=== PATIENT | female | born 1955 | race Caucasian/White ===

== ENCOUNTER 2016-04-21 06:55 | Outpatient (CLI) | payer MEDICARE, MEDICAID ==
[~2016-04-21] VITALS: Ht 157.5 cm; Wt 46.7 kg
[~2016-04-21 06:55] MED LIST: AMLO5TAB2 PO; BPR150TCR PO; FLUT9.9S NS; HYDR200T46 PO; LUBI24CA6 PO; OXYC-309 PO; OXYC10TA63 PO; OXYC40TA46 PO; PANT40TA PO; PREG100C22 PO; SUCR1TAB36 PO; TIZA4CAP PO
[2016-04-21] MEDS ORDERED: OXYC-465 PO (14:22)
[2016-04-21] MEDS ORDERED: POLY17PO6 PO (14:22)
[2016-04-21] MEDS ORDERED: NALO12.5 PO (14:26)
== END 2016-04-21 14:28 ==
LOC: PREOP 06:55
PROVIDERS: ATTEND Surgery
DX: Z01.818 Encounter for other preprocedural examination (principal); R13.10 Dysphagia, unspecified

== ENCOUNTER 2016-04-25 09:53 | Day surgery (SDC) | payer MEDICARE, MEDICAID ==
[~2016-04-25] VITALS: Ht 157.5 cm; Wt 46.7 kg
[~2016-04-25 09:53] MED LIST changes: +NALO12.5 PO; +OXYC-465 PO; +POLY17PO6 PO
[2016-04-25] MEDS ORDERED: HURRICAINE EXT TUBE (BENZOCAINE) XX PRN (10:15)
[2016-04-25] MEDS ORDERED: NALOXONE 0.4 MG/ML 1 ML (NARCAN) VIAL IVP PRN (10:15)
[2016-04-25] MEDS ORDERED: NS IV 500 ML 500 ML IV PRN (10:15)
[2016-04-25] MEDS ORDERED: FLUMAZENIL (ROMAZICON) 0.1 MG/ML 5 ML VIAL INJ PRN (10:15)
--- NOTE | 2016-04-25 10:23 | Pre-Op Note & Conscious Sedat ---
Pre-Operative Progress Note H&P Reviewed The H&P was reviewed, patient examined and no changes noted. Date H&P Reviewed: Apr 25, 2016 Time H&P Reviewed: 10:23 Pre-Op Diagnosis: dysphagia Conscious Sedation Pre-Proced ASA Class: 2 Airway Mallampati Classification: ([place] appropriate class) I. II. III, IV Lungs Heart ASA score ASA 1: a normal healthy patient ASA 2: a patient with a mild systemic disease (mid diabetes, controlled hypertension, obesity ASA 3: a patient with a severe systemic disease that limits activity (angina , COPD, prior Myocardial infarction) ASA 4: a patient with an incapacitating disease that is a constant threat to life (CHF, renal failure) ASA 5: a moribund patient not expected to survive 24 hrs. (ruptured aneurysm) ASA 6: a declared brain patient whose organs are being harvested. For emergent operations, add the letter E after the classification Grade 2 Sedation Plan: Discussed options with patient/fam Note The patient is an appropriate candidate to undergo the planned procedure, sedation, and anesthesia. The patient immediately re-assessed prior to indication. ERYN UL MD Apr 25, 2016 10:23 am
[2016-04-25 10:25] VITALS: BP 121/65
[2016-04-25] MEDS ORDERED: ERYT-95 PO (10:47)
[2016-04-25] MEDS ORDERED: MIDAZOLAM 2 MG/2 ML (VERSED) VIAL ONE ×5 (10:52→11:04)
[2016-04-25] MEDS ORDERED: fentaNYL INJECTION 100 MCG/2 ML AMP ONE (10:52)
[2016-04-25] MEDS ORDERED: HURRICAINE EXT TUBE (BENZOCAINE) ONE (10:53)
[2016-04-25] MEDS: fentaNYL INJECTION 100 MCG/2 ML AMP IVP PRN ×2 (10:58→11:01)
[2016-04-25] MEDS: MIDAZOLAM 2 MG/2 ML (VERSED) VIAL IVP PRN ×5 (11:00→11:10)
--- NOTE | 2016-04-25 11:18 | Progress Note-Post Operative ---
Post-Operative Progess Note Pre-Operative Diagnosis dysphagia Post-Operative Diagnosis diffusely thickened esophagus with narrowing of the distal end. Stomach and duodenum normal Post-Op Procedure Note Date of Procedure: Apr 25, 2016 Name of Procedure: EGD with balloon dilatation Anesthesia Type sedation ERYN LU MD Apr 25, 2016 11:18 am
--- NOTE | 2016-04-25 11:20 | Discharge Inst-Simple/Standard ---
Discharge Inst-Standard Discharge Medications New, Converted or Re-Newed RX: Other Patient Instructions/Follow Up Plan of Care/Instructions/FU: follow-up with her primary Activity as Tolerated: Yes Discharge Diet: No Restrictions ERYN LU MD Apr 25, 2016 11:19 am
[2016-04-25 11:50] VITALS: BP 147/75
--- NOTE | 2016-04-25 12:12 | PROCEDURE REPORT ---
PROCEDURE PHYSICIAN: ERYN LU DATE OF PROCEDURE: 04/25/2016 PROCEDURE: 1. Upper GI endoscopy. 2. Balloon dilatation of distal esophageal stricture. SURGEON: Earl INDICATION FOR THE PROCEDURE: This lady with scleroderma presented with progressive dysphagia. Therefore, an endoscopic assessment and possible balloon dilatation despite transient response, was offered. Informed consent was obtained after reviewing the procedure in detail. DESCRIPTION OF PROCEDURE: She was placed in left lateral decubitus position and her vital signs where monitored. Conscious sedation was achieved using Versed and fentanyl. The flexible gastroscope was introduced down the esophagus, past the stomach, into the proximal duodenum. FINDINGS: ESOPHAGUS: 1. Diffusely thickened esophagus due to involvement of the esophageal musculature as part of scleroderma. 2. Narrowing of the distal end of the esophagus, which was dilated to 20 mm with a balloon. STOMACH AND DUODENUM: Were normal. She tolerated the procedure well and was taken back to the nursing area in a stable condition. IMPRESSION: 1. Scleroderma with dysphagia. 2. Balloon dilatation completed. NOTE: The results may be transient and she may require further evaluation by a nutter up Job ID: [id number] Dictated Date: 04/25/2016 11:18:03 Data Entry Manager Date: 04/25/2016 12:05:39 / ketty STANTON
[2016-04-25 12:20] VITALS: BP 129/71
[2016-04-25 12:30] VITALS: BP 129/71
== END 2016-04-25 12:30 | disposition home or self-care (01) ==
LOC: SDC 09:53
PROVIDERS: ATTEND Surgery
DX: K22.2 Esophageal obstruction (principal); M34.9 Systemic sclerosis, unspecified; R13.10 Dysphagia, unspecified

== ENCOUNTER 2016-06-25 17:19 | Emergency (ER) | payer MEDICARE, MEDICAID ==
[~2016-06-25] VITALS: Ht 157.5 cm; Wt 45.4 kg
[~2016-06-25 17:19] MED LIST changes: +ERYT-95 PO
--- OUTSIDE RECORDS SUMMARY | 2016-06-25 17:24 | XMS REPORT | Continuity of Care Document ---
Author Author [facility] [address] Organization [facility] [address] Address Unknown Phone Unavailable Allergies Active Description Code Type Severity Reaction Onset Reported/Identified Relationship to Patient Clinical Status Yes No Known Drug Allergies [id number] Drug Allergy Unknown N/ A 04/25/2016 Medications Problems Date Dx Coded Attending Type Code Diagnosis Diagnosed By 08/07/2012 Ot 706.2 08/07/2012 Ot V58.69 04/04/2015 YUNIOR MCGILL DO Ot F17.210 04/04/2015 YUNIOR MCGILL DO Ot M34.9 04/04/2015 YUNIOR MCGILL DO Ot T81.30XA 04/04/2015 Ot 305.1 04/04/2015 Ot 401.9 04/04/2015 Ot 710.1 04/04/2015 Ot 790.6 04/04/2015 Ot 709.9 04/04/2015 Ot V72.63 04/04/2015 Ot V74.8 04/04/2015 OLEG POLANCO MEETING MANAGER Ot 786.2 04/04/2015 OLEG POLANCO MEETING MANAGER Ot 793.19 04/22/2016 TABITHA ELLISON, ERYN Reis Ot R13.10 DYSPHAGIA, UNSPECIFIED 04/22/2016 TABITHA ELLISON, ERYN Reis Ot Z01.818 ENCOUNTER FOR OTHER PREPROCEDURAL EXAMIN 04/25/2016 TABITHA ELLISON, ERYN Reis Ot K22.2 ESOPHAGEAL OBSTRUCTION 04/25/2016 TABITHA ELLISON, ERYN Reis Ot M34.9 SYSTEMIC SCLEROSIS, UNSPECIFIED 04/25/2016 TABITHA ELLISON, ERYN Reis Ot R13.10 DYSPHAGIA, UNSPECIFIED 04/26/2016 TABITHA ELLISON, ERYN Reis Ot K22.2 ESOPHAGEAL OBSTRUCTION 04/26/2016 TABITHA ELLISON, ERYN Reis Ot M34.9 SYSTEMIC SCLEROSIS, UNSPECIFIED 04/26/2016 TABITHA ELLISON, EYRN Reis Ot R13.10 DYSPHAGIA, UNSPECIFIED 04/29/2016 TABITHA ELLISON, ERYN Reis Ot K22.2 ESOPHAGEAL OBSTRUCTION 04/29/2016 TABITHA ELLISON, ERYN Reis Ot M34.9 SYSTEMIC SCLEROSIS, UNSPECIFIED 04/29/2016 TABITHA ELLISON, ERYN Reis Ot R13.10 DYSPHAGIA, UNSPECIFIED Procedures Results Encounters ACCT No. Visit Date/Time Discharge Status Pt. Type Provider Facility Loc./Unit Complaint [id number] 04/25/2016 09:53:00 2016 12:30:00 DIS Outpatient ERYN LU MD [facility] [address] SDC DYSPHAGIA [id number] 04/21/2016 06:55:00 2016 14:28:00 DIS Outpatient ERYN LU MD [facility] [address] PREOP DYSPHAGIA [id number] 04/04/2015 22:32:00 2014 23:36:00 DIS Emergency YUNIOR MCGILL DO [facility] [address] ER [id number] 04/30/2013 09:42:00 2013 23:59:59 CLS Outpatient OLEG POLANCO [facility] [address] RAD [id number] 08/07/2012 10:25:00 Document Registration [id number] 08/03/2012 14:54:00 Document Registration [id number] 03/29/2012 15:01:00 Document Registration
[2016-06-25] MEDS ORDERED: LACT1CAP74 PO (19:14)
[2016-06-25] MEDS ORDERED: AMOX-358 PO (19:14)
[2016-06-25] MEDS ORDERED: RX-AMOX/CLAV. (AUGMENTIN) 500MG TAB PPK#2 PO STA (19:14)
--- NOTE | 2016-06-25 19:14 | ED General ---
General Chief Complaint: Bite-Animal/Human/Insect Stated Complaint: L ARM SWELLING/REDNESS, PAIN Nursing Triage Note: Patient reports cat bite her on her L hand on the . patient reports her LFA is red and swollen Nursing Sepsis Screen: No Definite Risk Source of Information: Patient Exam Limitations: No Limitations History of Present Illness Time Seen by Provider: 19:12 Initial Comments To ER with reports of redness to the radial side of the wrist that is spreading up the left forearm. No fevers or chills. This began 2 days ago after her pet cat bit her while in a fight with another cat. Tetanus is not up-to-date. Timing/Duration: 1-2 Days Severity: Moderate Associated Systoms: No Fever/Chills Allergies and Home Medications Allergies Coded Allergies: No Known Drug Allergies (Verified , 04/25/16) Home Medications Amlodipine Besylate 5 Mg Tablet 2.5 MG PO DAILY (Reported) Bupropion Hcl 150 Mg Tablet 150 MG PO BID (Reported) Erythromycin Base 250 Mg Tablet 250 MG PO Q6H (Reported) Fluticasone Propionate 9.9 Ml [place].susp 9.9 ML NS DAILY (Reported) Hydroxychloroquine Sulfate 200 Mg Tablet 200 MG PO BID (Reported) Lubiprostone 24 Mcg Capsule 24 MCG PO BID (Reported) Naloxegol Oxalate 12.5 Mg Tablet 12.5 MG PO DAILY (Reported) Oxycodone HCl 40 Mg Tab.er.12h 40 MG PO TID (Reported) Oxycodone HCl/Acetaminophen 1 Each Tablet 1 EACH PO Q4H PRN PRN PAIN (Reported) Oxycodone Hcl/Acetaminophen 1 Each Tablet 5-325 MG PO Q4H PRN PRN PAIN (Reported ) PRN BREAKTHROUGH PAIN Pantoprazole Sodium 40 Mg Tablet.dr 40 MG PO BID (Reported) Polyethylene Glycol 3350 17 Gm Powd.pack 17 GM PO DAILY (Reported) Sucralfate 1 Gm Tablet 1 GM PO QID PRN PRN GI UPSET (Reported) Tizanidine HCl 4 Mg Capsule 4 MG PO TID (Reported) Constitutional: see HPI EENTM: see HPI Respiratory: no symptoms reported Cardiovascular: no symptoms reported Genitourinary: no symptoms reported Musculoskeletal: see HPI Skin: no symptoms reported Psychiatric/Neurological: No Symptoms Reported Hematologic/Lymphatic: No Symptoms Reported Past Feryeeq-Iuyguf-Epurhy Hx Patient Social History Alcohol Use: Denies Use Recreational Drug Use: No Smoking Status: Current Everyday Smoker Type Used: Cigarettes Recent Foreign Travel: No Contact w/Someone Who Travel: No Recent Infectious Disease Expo: No Recent Hopitalizations: No Immunizations Up To Date Tetanus Booster (TDap): Unknown Date of Influenza Vaccine: Dec 17, 2015 Seasonal Allergies Seasonal Allergies: Yes Surgeries HX Surgeries: Yes (bursal cyst removal left elbow) Surgeries: Section Respiratory Hx Respiratory Disorders: No Cardiovascular Hx Cardiac Disorders: No Neurological Hx Neurological Disorders: No Reproductive System Hx Reproductive Disorders: No Sexually Transmitted Disease: No HIV/AIDS: No Genitourinary Hx Genitourinary Disorders: No Gastrointestinal Hx Gastrointestinal Disorders: Yes (hardened esophagus d/t scleroderma) Gastrointestinal Disorders: Gastroesophageal Reflux, Chronic Constipation, Diverticulosis, Polyps Musculoskeletal Hx Musculoskeletal Disorders: Yes Musculoskeletal Disorders: Arthritis, Chronic Back Pain Endocrine Hx Endocrine Disorders: No HEENT HX ENT Disorders: Yes (GLASSES) Loss of Vision: Bilateral Hearing Impairment: Denies Cancer Hx Cancer: No Psychosocial Hx Psychiatric Problems: Yes Behavioral Health Disorders: Anxiety Integumentary HX Skin/Integumentary Disorder: Yes (scleroderma, raynaud's) Blood Transfusions Hx Blood Disorders: No Adverse Reaction to a Blood Tr: No Physical Exam Vital Signs Capillary Refill : Less Than 3 Seconds General Appearance: No Apparent Distress WD/WN Eyes: Bilateral Eye EOMI, Bilateral Eye Normal Inspection, Bilateral Eye PERRL HEENT: PERRL/EOMI TMs Normal Neck: Full Range of Motion Normal Inspection Respiratory: No Accessory Muscle Use No Respiratory Distress Gastrointestinal: Non Tender Soft Neurologic/Psychiatric: Alert Oriented x3 No Motor/Sensory Deficits Skin: Normal Color Warm/Dry Erythema (there is a scabbed puncture wound over the first MCP joint of the left hand dorsally. There is no drainage to be collected. There is no devitalized tissue to be debrided. There is no pain with passive flexion or extension to suggest tenosynovitis or joint involvement. There is erythema that extends proximally up the radial side of the forearm to the mid forearm with lymphangitis that extends proximally terminating at the elbow.) Laceration Repair : Suture Size: 5-0 Progress/Results/Core Measures Results/Orders My Orders Orders-COSMO VALVERDE APRN Cbc With Automated Diff (06/25/16 19:10) Hs C Reactive Protein (06/25/16 19:10) Blood Pressure Mean: 113 Departure Impression Impression: Primary Impression: Cat bite Qualified Code: W55.01XA - Bitten by cat, initial encounter Disposition: HOME, SELF-CARE Condition: Stable Departure-Patient Inst. Decision time for Depature: 19:13 Referrals: WALDEMAR MORRELL MD (PCP/Family) Primary Care Physician Patient Instructions: Animal Bites (DC) Add. Discharge Instructions: All discharge instructions reviewed with patient and/or family. Voiced understanding. Scripts Lactobacillus Combination No.4 (Probiotic)1 Each Capsule1 Each PO BID #20 CAP Prov:COSMO VALVERDE APRN 06/25/16 Amoxicillin/Potassium Clav (Augmentin 875-125 Tablet)1 Each Tablet1 Each PO BID #20 TAB Prov:COSMO VALVERDE APRN 06/25/16 COSMO VALVERDE APRN Jun 25, 2016 19:14
[2016-06-25] MEDS ORDERED: TETANUS,DIPTH,PERTUSS P/F (BOOSTRIX) 0.5 ML VIAL IM ONE (19:15)
[2016-06-25] MEDS ORDERED: PIPERACILLIN SODIUM/TAZOBACTAM 4.5 GM in NS (IVPB) 100 ML IV ONE (19:15)
[2016-06-25 19:31] LABS: BASOPHILS # (AUTO) 0.1 10^3/uL (0.0-0.1); BASOPHILS % (AUTO) 1 % (0-10); EOSINOPHILS # (AUTO) 0.2 10^3/uL (0.0-0.3); EOSINOPHILS % (AUTO) 2 % (0-10); LYMPHOCYTES # (AUTO) 2.1 X 10^3 (1.0-4.0); LYMPHOCYTES % (AUTO) 20 % (12-44); MEAN CORPUSCULAR HEMOGLOBIN 33 PG (25-34); MEAN CORPUSCULAR HGB CONC 35 G/DL (32-36); MEAN CORPUSCULAR VOLUME 96 FL (80-99); MONOCYTES # (AUTO) 1.7 X 10^3 (0.0-1.0); MONOCYTES % (AUTO) 16 % (0-12); NEUTROPHILS # (AUTO) 6.4 X 10^3 (1.8-7.8); NEUTROPHILS % (AUTO) 61 % (42-75); PLATELET COUNT 302 10^3/uL (130-400); RED BLOOD COUNT 4.44 10^6/uL (4.35-5.85); RED CELL DISTRIBUTION WIDTH 12.9 % (10.0-14.5); WHITE BLOOD COUNT 10.5 10^3/uL (4.3-11.0)
[2016-06-25 20:07] VITALS: BP 171/85
== END 2016-06-25 20:07 | disposition home or self-care (01) ==
LOC: EDUNIT# 17:19 → ER 17:21
DX: L03.114 Cellulitis of left upper limb (principal); F17.210 Nicotine dependence, cigarettes, uncomplicated
CPT/HCPCS: 36415; 85025; 86141; 87040; 90471; 90715; 96365

== ENCOUNTER → 2018-05-28 | Outpatient (CLI) | payer MEDICARE, MEDICAID ==
[~2018-05-28] MED LIST changes: +AMOX-358 PO; +LACT1CAP74 PO
== END ==
LOC: WOUNDCARE 13:40
PROVIDERS: ATTEND Surgery
DX: L98.492 Non-pressure chronic ulcer of skin of other sites with fat layer exposed (principal); M34.89 Other systemic sclerosis; T65.222A Toxic effect of tobacco cigarettes, intentional self-harm, initial encounter; F17.218 Nicotine dependence, cigarettes, with other nicotine-induced disorders
CPT/HCPCS: 11042